=== PATIENT | male | born 1965 | race Caucasian/White ===

== ENCOUNTER 2017-09-16 13:37 | Emergency (ER) | payer MEDICAID ==
[~2017-09-16] VITALS: Ht 177.8 cm; Wt 68.9 kg
[2017-09-16] MEDS ORDERED: IBUP-1984 PO (14:15)
[2017-09-16] MEDS ORDERED: GUAI473S11 PO (14:15)
[2017-09-16] MEDS ORDERED: ALBU6.7H INH (14:15)
[2017-09-16] MEDS ORDERED: CARB15DR91 EACH EAR (14:17)
[2017-09-16 14:33] VITALS: BP 116/76
== END 2017-09-16 14:40 | disposition home or self-care (01) ==
LOC: ER 13:38
DX: J11.1 Influenza due to unidentified influenza virus with other respiratory manifestations (principal); H61.21 Impacted cerumen, right ear; Z79.899 Other long term (current) drug therapy
CPT/HCPCS: 99283

== ENCOUNTER 2021-01-26 20:57 | Inpatient (IN) | payer MEDICAID ==
[~2021-01-26] VITALS: Ht 177.8 cm; Wt 72.7 kg
[~2021-01-26 20:57] MED LIST: ALBU6.7H9 INH; CARB15DR91 EACH EAR
[2021-01-26 21:45] LABS: BASOPHILS % (AUTO) 0.2 % (0-1); EOSINOPHILS % (AUTO) 0.2 % (0-6); HEMATOCRIT 49.5 % (42.0-52.0); HEMOGLOBIN 16.5 g/dl (14.0-17.9); LYMPHOCYTES # (AUTO) 0.7 X10'3 (1.1-4.8); LYMPHOCYTES % (AUTO) 4.3 % (21-51); MEAN CORPUSCULAR HGB CONC 33.3 g/dL (33.0-36.5); MEAN CORPUSCULAR VOLUME 90.1 FL (78-98); MEAN PLATELET VOLUME 6.8 FL (7.4-10.4); MONOCYTES # (AUTO) 0.7 X10'3 (0-0.9); MONOCYTES % (AUTO) 4.1 % (2-12); NEUTROPHILS % (AUTO) 91.2 % (42-75); PLATELET COUNT 451 X10'3 (140-440); RED BLOOD COUNT 5.49 X10'6 (4.70-6.10); WHITE BLOOD COUNT 16.5 X10'3 (4.5-11.0)
[2021-01-26 21:56] LABS: ALANINE AMINOTRANSFERASE 51 U/L (12-78); ALBUMIN 4.4 G/DL (3.4-5.0); ALBUMIN/GLOBULIN RATIO 1.2 (1.1-1.5); ALKALINE PHOSPHATASE 110 IU/L (46-116); ANION GAP 10 (8-16); ASPARTATE AMINO TRANSFERASE 25 U/L (10-37); BILIRUBIN,TOTAL 0.9 MG/DL (0.1-1.0); BLOOD UREA NITROGEN 15 MG/DL (7-18); BUN/CREATININE RATIO 10.4 (5.4-32.0); CALCIUM 9.8 MG/DL (8.5-10.1); CHLORIDE 103 MMOL/L (99-107); CREATININE 1.44 MG/DL (0.60-1.10); GLUCOSE 121 MG/DL (70-104); LIPASE 65 U/L (73-393); SODIUM 141 MMOL/L (135-145); TOTAL CARBON DIOXIDE 27.6 MMOL/L (24-32); TOTAL PROTEIN 8.2 G/DL (6.4-8.2); eGFR 51 ML/MIN
[2021-01-26] MEDS ORDERED: tamsulosin 0.4mg capsule PO SCH (22:35)
[2021-01-26] MEDS ORDERED: ketorolac trometh. 30mg/ml inj. IV ONE (22:35)
[2021-01-26] MEDS ORDERED: normal saline 1000ML IV soln IVB ONE (22:35)
[2021-01-26 22:50] LABS: ETHANOL < 0.010 GM/DL (0.0-0.010)
[2021-01-26 23:05] LABS: CLARITY,URINE SLIGHTLY CLOUDY (Clear); COLOR,URINE YELLOW (Yellow); GLUCOSE, URINE NEGATIVE (Neg); KETONES,URINE >=80 mg/dl (Neg); LEUKOCYTE ESTERASE ,URINE NEGATIVE (Neg); NITRITES, URINE NEGATIVE (Neg); OCCULT BLOOD,URINE MODERATE (Neg); PROTEIN,URINE 100 mg/dl (Neg)
[2021-01-26 23:07] LABS: UA COLLECTION TYPE CLN CATCH MIDSTREAM
[2021-01-26 23:09] LABS: URINE AMPHETAMINE SCREEN POSITIVE (Neg); URINE BARBITUATE SCREEN NEGATIVE (Neg); URINE BENZODIAZEPINES SCREEN NEGATIVE (Neg); URINE CANNABINOID SCREEN POSITIVE (Neg); URINE COCAINE SCREEN NEGATIVE (Neg); URINE METHADONE SCREEN NEGATIVE (Neg); URINE OPIATE SCREEN NEGATIVE (Neg); URINE PHENCYCLIDINE SCREEN NEGATIVE (Neg)
[2021-01-26 23:13] LABS: WBC,URINE 0-4 /HPF (0-4)
[2021-01-26 23:14] LABS: BACTERIA,URINE NONE SEEN /HPF (Neg); MUCUS STRANDS MODERATE /LPF (Neg); SPERM MODERATE /HPF (NEGATIVE); SQUAMOUS EPITHELIAL CELL,UR FEW /LPF (FEW)
[2021-01-27] MEDS ORDERED: CefTRIAXone/D5W-Rocephin 1gm 50 ML IV ONE (01:25)
--- NOTE | 2021-01-27 01:43 | NUR ---
report given by Paula Coppola, assumed care.
[2021-01-27] MEDS ORDERED: OMEP20TA5 PO (01:48)
[2021-01-27] MEDS ORDERED: HYDROmorphone inj. 0.5 MG/0.5 ML DISP.SYRIN IV PRN (02:00)
[2021-01-27] MEDS ORDERED: magnesium hydroxide 30ml (MOM) UD suspension PO PRN (02:00)
[2021-01-27] MEDS ORDERED: ondansetron/PF 4mg/2ml inj IV PRN (02:00)
[2021-01-27] MEDS ORDERED: acetaminophen 325mg tablet PO PRN ×2 (02:00)
[2021-01-27] MEDS ORDERED: bisacodyl 10mg suppository rectal RC PRN (02:00)
[2021-01-27] MEDS ORDERED: acetaminophen 650mg rectal suppository RC PRN (02:00)
[2021-01-27] MEDS ORDERED: HYDROcodone/acetaminophen 10/325mg tab PO PRN (02:00)
[2021-01-27] MEDS ORDERED: ondansetron 4mg rapidly disintigrating tab PO PRN (02:00)
[2021-01-27] MEDS ORDERED: HYDROcodone/acetaminophen 5mg/325mg tablet PO PRN (02:00)
[2021-01-27] MEDS ORDERED: diphenhydrAMINE 50 mg/ml inj IV PRN (02:00)
[2021-01-27] MEDS ORDERED: morphine 2 MG/ML inj. syringe IV PRN ×2 (02:00)
[2021-01-27] MEDS ORDERED: mag hydrox/Alum hydrox/simeth 30ml oral suspension PO PRN (02:00)
[2021-01-27] MEDS ORDERED: diphenhydrAMINE 25mg capsule PO PRN (02:00)
[2021-01-27 02:28] LABS: PARTIAL THROMBOPLASTIN TIME 30 SECONDS (22-32)
[2021-01-27 02:28] LABS: CREATINE KINASE 161 U/L (39-308); PHOSPHORUS 2.7 MG/DL (2.3-4.5)
[2021-01-27] MEDS: dextrose 5%-1/2 normal saline 1,000 ML IV SCH ×2 (02:34→12:00)
--- NOTE | 2021-01-27 03:14 | NUR ---
report given to TASHIA Moreno. care transferred.
[2021-01-27] MEDS ORDERED: nicotine 21mg patch - 24 hr TD ONE (05:15)
--- NOTE | 2021-01-27 07:21 | NUR ---
RN called [facility] to give report. Floor RN unavailable and will call ED back.
[2021-01-27] MEDS ORDERED: pantoprazole 40mg Tablet.DR PO SCH (07:30)
[2021-01-27] MEDS ORDERED: lisinopril 5mg tablet PO SCH (08:00)
[2021-01-27] MEDS ORDERED: heparin, porcine 5000 units/ml vial SQ SCH (08:00)
[2021-01-27] MEDS ORDERED: tamsulosin 0.4mg capsule PO SCH (08:00)
[2021-01-27] MEDS ORDERED: docusate sod 100mg capsule PO SCH (08:00)
[2021-01-27 08:45] VITALS: BP 150/87
--- NOTE | 2021-01-27 08:45 | NUR ---
Patient in room [facility] 340. I have received report from [facility] and had the opportunity to ask questions and assume patient care.
[2021-01-27] MEDS ORDERED: potassium Cl 40MEQ/1/2NS 520ml 520 ML IV PRN (10:25)
[2021-01-27] MEDS ORDERED: magnesium 4gm in 100ml NS 100 ML IV PRN (10:25)
[2021-01-27] MEDS ORDERED: potassium Cl 20 mEq SR tablet PO PRN ×2 (10:25)
[2021-01-27] MEDS ORDERED: magnesium Cl slow-release 64mg tablet PO PRN (10:25)
--- NOTE | 2021-01-27 10:35 | NUR ---
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 She appears to be adequately cared for. She was independently ambulating in the hallways, with a slight shuffle. This mom was escorted back to pt's room. TASHIA Colon, and BEE Polo, and Billie Ortiz Entry Level Administrative Assistant are aware. Rtn call from Chief Revenue Officer pending.
[2021-01-27 11:00] VITALS: BP 147/86
[2021-01-27] MEDS ORDERED: CefTRIAXone/D5W-Rocephin 1gm 50 ML IV SCH (14:00)
[2021-01-27] MEDS ORDERED: LACT1CAP26 PO (18:09)
[2021-01-27] MEDS ORDERED: AMLO5TAB16 PO (18:09)
[2021-01-27] MEDS ORDERED: CEFD300C3 PO (18:13)
--- NOTE | 2021-01-27 18:27 | NUR ---
Problems reprioritized. Patient report given, questions answered & plan of care reviewed with Lynette Ojeda RN.
--- NOTE | 2021-01-27 18:35 | NUR ---
Patient in room [facility] 340. I have received report from SAPPHIRE [facility] and had the opportunity to ask questions and assume patient care. PATIENT FOR DISCHARGE TONIGHT WITH ORDER FROM DR. VICENTE.
--- NOTE | 2021-01-27 19:00 | NUR ---
DISCHARGE INSTRUCTIONS GIVEN TO PATIENT AND VERBALIZED UNDERSTANDING, DISCHARGE PAPER SIGNED BY PATIENT. PIV DISCONTINUED WITH CANNULA INTACT, PRESSURE DRESSING APPLIED NO BLEEDING NOTED.
--- NOTE | 2021-01-27 19:15 | NUR ---
PATIENT LEFT FOR DISCHARGE HOME IN A WHEELCHAIR WITH STAFF TO THE FRONT DOOR.
[2021-01-27] MEDS ORDERED: lactobacillus rhamnosus 10,000 MMU CELLS/CAPSULE PO SCH (20:00)
[2021-01-27] MEDS ORDERED: K and/or MAG REPLACEMENT MC SCH (20:00)
[2021-01-27] MEDS ORDERED: temazepam 15mg capsule PO PRN (21:00)
== END 2021-01-27 19:10 | disposition home or self-care (01) | DRG 463 ==
LOC: ER 20:59 → ED HOLD 01-27 01:57 → SUR 3N 01-27 08:31
PROVIDERS: ADMIT Family Medicine; ATTEND Family Medicine
DX: N13.6 Pyonephrosis (principal); N17.9 Acute kidney failure, unspecified; E86.0 Dehydration; F12.10 Cannabis abuse, uncomplicated; F15.129 Other stimulant abuse with intoxication, unspecified; F17.200 Nicotine dependence, unspecified, uncomplicated; I10 Essential (primary) hypertension; K21.9 Gastro-esophageal reflux disease without esophagitis
CPT/HCPCS: 36415; 74176; 80053; 80305; 80320; 81001; 82550; 83690; 83735; 83880; 84100; 84443; 85025; 85610; 85730; 87081; 99285; G0378; J0696; J1644; J1885; J7030

== ENCOUNTER 2023-04-04 09:11 | Inpatient (IN) | payer MEDICAID ==
[~2023-04-04] VITALS: Ht 175.3 cm; Wt 70.5 kg
[~2023-04-04 09:11] MED LIST changes: -ALBU6.7H9 INH; +AMLO5TAB16 PO; -CARB15DR91 EACH EAR; +LACT1CAP26 PO; +OMEP20TA43 PO
[2023-04-04] MEDS ORDERED: piperacillin/tazo 3.375gm/50ml 50 ML IV ONE (09:55)
[2023-04-04] MEDS ORDERED: normal saline 1000ml 1,000 ML IV ONE (09:55)
[2023-04-04] MEDS ORDERED: morphine 4 MG/ML inj SYRINge IV ONE (09:55)
[2023-04-04 10:39] LABS: BASOPHILS # (AUTO) 0.1 X10'3 (0-0.2); BASOPHILS % (AUTO) 0.5 % (0-1); EOSINOPHILS # (AUTO) 0.5 X10'3 (0-0.9); EOSINOPHILS % (AUTO) 2.3 % (0-6); HEMATOCRIT 41.4 % (42.0-52.0); LYMPHOCYTES # (AUTO) 1.2 X10'3 (1.1-4.8); LYMPHOCYTES % (AUTO) 6.1 % (21-51); MEAN CORPUSCULAR HEMOGLOBIN 30.5 PG (27.0-31.0); MEAN CORPUSCULAR VOLUME 89.8 FL (78-98); MEAN PLATELET VOLUME 7.4 FL (7.4-10.4); MONOCYTES # (AUTO) 1.6 X10'3 (0-0.9); MONOCYTES % (AUTO) 7.9 % (2-12); NEUTROPHILS # (AUTO) 16.4 X10'3 (1.8-7.7); NEUTROPHILS % (AUTO) 83.2 % (42-75); PLATELET COUNT 431 X10'3 (140-440); RED BLOOD COUNT 4.61 X10'6 (4.70-6.10); RED CELL DISTRIBUTION WIDTH 14.4 % (11.5-14.5); WHITE BLOOD COUNT 19.8 X10'3 (4.5-11.0)
[2023-04-04 10:51] LABS: ALANINE AMINOTRANSFERASE 39 U/L (12-78); ALBUMIN 3.3 G/DL (3.4-5.0); ALBUMIN/GLOBULIN RATIO 0.7 (1.1-1.5); ALKALINE PHOSPHATASE 116 IU/L (46-116); ANION GAP 11 (8-16); BILIRUBIN,TOTAL 1.2 MG/DL (0.1-1.0); BLOOD UREA NITROGEN 19 MG/DL (7-18); BUN/CREATININE RATIO 17.4 (10.0-20.0); CALCIUM 9.5 MG/DL (8.5-10.1); CHLORIDE 101 MMOL/L (99-107); CREATININE 1.09 MG/DL (0.60-1.10); GLUCOSE 117 MG/DL (70-104); MAGNESIUM 2.5 MG/DL (1.5-2.4); SODIUM 138 MMOL/L (135-145); eGFR 70 ML/MIN
[2023-04-04 10:57] LABS: ASPARTATE AMINO TRANSFERASE 29 U/L (10-37); POTASSIUM 3.7 MMOL/L (3.5-5.1)
[2023-04-04 11:00] LABS: CLARITY,URINE SLIGHTLY CLOUDY (Clear); COLOR,URINE AMBER (Yellow); GLUCOSE, URINE 100 mg/dl (Neg); KETONES,URINE TRACE mg/dl (Neg); LEUKOCYTE ESTERASE ,URINE NEGATIVE (Neg); OCCULT BLOOD,URINE NEGATIVE (Neg); PH,URINE 5.5 (4.8-8.0); PROTEIN,URINE 30 mg/dl (Neg)
[2023-04-04 11:09] LABS: UA COLLECTION TYPE CLN CATCH MIDSTREAM; URINE AMPHETAMINE SCREEN POSITIVE (Neg); URINE BARBITUATE SCREEN NEGATIVE (Neg); URINE BENZODIAZEPINES SCREEN NEGATIVE (Neg); URINE CANNABINOID SCREEN POSITIVE (Neg); URINE COCAINE SCREEN NEGATIVE (Neg); URINE METHADONE SCREEN NEGATIVE (Neg); URINE OPIATE SCREEN NEGATIVE (Neg); URINE PHENCYCLIDINE SCREEN NEGATIVE (Neg)
[2023-04-04 11:10] LABS: NITRITES, URINE NEGATIVE (Neg)
[2023-04-04 11:27] LABS: BACTERIA,URINE 1+ /HPF (Neg); MUCUS STRANDS MANY /LPF (Neg); RBC,URINE NONE SEEN /HPF (0-2); SQUAMOUS EPITHELIAL CELL,UR FEW /LPF (FEW)
[2023-04-04] MEDS ORDERED: acetaminophen 325mg tablet PO PRN ×2 (11:35)
[2023-04-04] MEDS ORDERED: magnesium hydroxide 30ml (MOM) UD suspension PO PRN (11:35)
[2023-04-04] MEDS ORDERED: morphine 2 MG/ML inj. syringe IV PRN (11:35)
[2023-04-04] MEDS ORDERED: potassium Cl 40MEQ/1/2NS 520ml 520 ML IV PRN (11:35)
[2023-04-04] MEDS ORDERED: ondansetron/PF 4mg/2ml inj IV PRN (11:35)
[2023-04-04] MEDS ORDERED: potassium Cl 20 mEq SR tablet PO PRN ×2 (11:35)
[2023-04-04] MEDS ORDERED: magnesium Cl slow-release 64mg tablet PO PRN (11:35)
[2023-04-04] MEDS ORDERED: magnesium 4gm in 100ml NS 100 ML IV PRN (11:35)
[2023-04-04] MEDS ORDERED: magnesium 2GM in 50ml NS 50 ML IV PRN (11:35)
[2023-04-04] MEDS: normal saline 1000ml 1,000 ML IV SCH (12:01)
[2023-04-04] MEDS: doxycycline inj 100 MG in normal saline 100ml IV soln 100 ML IV SCH ×2 (12:02→19:20)
[2023-04-04] MEDS ORDERED: OMEP40CA21 PO (12:52)
--- NOTE | 2023-04-04 15:19 | NUR ---
Wound care pictures taken. Wound redressed.
[2023-04-04 16:02] VITALS: RESP 12
[2023-04-04 16:45] VITALS: BP 111/67; PULSE 57; RESP 18; TEMP 97.8; O2SAT 99
--- NOTE | 2023-04-04 18:26 | NUR ---
Problems reprioritized. Patient report given, questions answered & plan of care reviewed with TASHIA Lacy.
--- NOTE | 2023-04-04 18:26 | NUR ---
Patient in room [facility] 4007. I have received report from Perico [facility] and had the opportunity to ask questions and assume patient care.
--- NOTE | 2023-04-04 18:30 | NUR ---
I have reviewed and agree with interventions, assessments, and documentation by Dallas Sherwood LVN.
[2023-04-04 19:20] VITALS: BP 103/63; PULSE 74; RESP 16; TEMP 97.8; O2SAT 96
[2023-04-04] MEDS: heparin, porcine 5000 units/ml vial SQ SCH (19:21)
[2023-04-04] MEDS: HYDROcodone/acetaminophen 5mg/325mg tablet PO PRN (19:21)
[2023-04-04 21:52] VITALS: BP 102/62; PULSE 72; RESP 14; TEMP 98; O2SAT 99
[2023-04-05] VITALS (7 sets, daily range): BP systolic 100–137; BP diastolic 62–82; PULSE 60–67; RESP 14–16; TEMP 97.7–98.3; O2SAT 97–99
[2023-04-05] MEDS: normal saline 1000ml 1,000 ML IV SCH ×2 (03:47→19:08)
[2023-04-05] MEDS: HYDROcodone/acetaminophen 5mg/325mg tablet PO PRN ×2 (03:50→23:33)
--- NOTE | 2023-04-05 06:15 | NUR ---
Patient in room [facility] 4007. I have received report from Bambi [facility] and had the opportunity to ask questions and assume patient care.
--- NOTE | 2023-04-05 06:20 | NUR ---
Problems reprioritized. Patient report given, questions answered & plan of care reviewed with Elisha [facility].
[2023-04-05 07:46] LABS: BASOPHILS # (AUTO) 0.1 X10'3 (0-0.2); BASOPHILS % (AUTO) 1.2 % (0-1); EOSINOPHILS # (AUTO) 0.5 X10'3 (0-0.9); EOSINOPHILS % (AUTO) 4.6 % (0-6); HEMATOCRIT 35.7 % (42.0-52.0); HEMOGLOBIN 11.9 g/dl (14.0-17.9); LYMPHOCYTES # (AUTO) 1.6 X10'3 (1.1-4.8); LYMPHOCYTES % (AUTO) 13.6 % (21-51); MEAN CORPUSCULAR HEMOGLOBIN 29.9 PG (27.0-31.0); MEAN CORPUSCULAR HGB CONC 33.3 g/dL (33.0-36.5); MEAN CORPUSCULAR VOLUME 89.7 FL (78-98); MEAN PLATELET VOLUME 7.6 FL (7.4-10.4); MONOCYTES # (AUTO) 0.8 X10'3 (0-0.9); MONOCYTES % (AUTO) 6.9 % (2-12); NEUTROPHILS # (AUTO) 8.5 X10'3 (1.8-7.7); NEUTROPHILS % (AUTO) 73.7 % (42-75); PLATELET COUNT 370 X10'3 (140-440); RED BLOOD COUNT 3.98 X10'6 (4.70-6.10); RED CELL DISTRIBUTION WIDTH 14.2 % (11.5-14.5); WHITE BLOOD COUNT 11.5 X10'3 (4.5-11.0)
[2023-04-05] MEDS: doxycycline inj 100 MG in normal saline 100ml IV soln 100 ML IV SCH ×2 (07:52→20:47)
[2023-04-05 08:17] LABS: ALANINE AMINOTRANSFERASE 31 U/L (12-78); ALBUMIN 2.2 G/DL (3.4-5.0); ALBUMIN/GLOBULIN RATIO 0.6 (1.1-1.5); ALKALINE PHOSPHATASE 94 IU/L (46-116); ANION GAP 8 (8-16); ASPARTATE AMINO TRANSFERASE 26 U/L (10-37); BILIRUBIN,TOTAL 0.3 MG/DL (0.1-1.0); BLOOD UREA NITROGEN 18 MG/DL (7-18); BUN/CREATININE RATIO 20.9 (10.0-20.0); CALCIUM 8.3 MG/DL (8.5-10.1); CHLORIDE 106 MMOL/L (99-107); CREATININE 0.86 MG/DL (0.60-1.10); GLUCOSE 98 MG/DL (70-104); SODIUM 141 MMOL/L (135-145); TOTAL CARBON DIOXIDE 26.9 MMOL/L (24-32); TOTAL PROTEIN 5.8 G/DL (6.4-8.2); eGFR > 90 ML/MIN
[2023-04-05] MEDS: pantoprazole 40mg Tablet.DR PO SCH (08:33)
[2023-04-05 08:36] LABS: POTASSIUM 3.6 MMOL/L (3.5-5.1)
[2023-04-05] MEDS: heparin, porcine 5000 units/ml vial SQ SCH ×2 (08:36→20:49)
--- NOTE | 2023-04-05 15:28 | NUR ---
ADOBE FLEX DEVELOPER documentation: I have reviewed and agree with all interventions, assessments performed and documented by Bella Almanzar LVN .
--- NOTE | 2023-04-05 15:43 | NUR ---
PRESSURE ULCER EDUCATION: DEFINITION: A pressure ulcer is an area of skin that breaks down when you stay in one position too long. The constant pressure against the skin reduces the blood flow to that area and the affected tissue dies. CAUSES: "Being bedridden or in a wheelchair "Fragile skin "Having a chronic condition, such as diabetes or vascular disease "Inability to move certain parts of your body without assistance "Older age "Incontinence of urine or stool SYMPTOMS: "A reddened area that DOES NOT turn white when pressed on - this can be the beginning of a pressure ulcer "A blister, deep sore or a crater - these can be advanced pressure ulcers FIRST AID: "Relieve the pressure on this area "Keep the area clean and dry "Call your primary doctor if you see any of the above symptoms "DO NOT massage the area "DO NOT use a donut shaped or ring shaped pillow- these actually interfere with the blood flow and cause complications PREVENTION: "Check for pressure ulcers everyday "Change position at least every two hours to relieve pressure "Use items that help relieve pressure- pillows, sheepskin, foam padding, and powders. "Keep skin clean and dry "Eat healthy well balanced meals "Exercise daily IF YOU SEE ANY OF THESE SYMPTOMS WHILE IN THE HOSPITAL - TELL YOUR NURSE IMMEDIATELY. IF YOU SEE ANY OF THESE SYMPTOMS WHILE AT HOME OR HAVE ANY QUESTIONS OR CONCERNS ABOUT PRESSURE ULCERS - CALL YOUR PRIMARY DOCTOR IMMEDIATELY. Addendum: 04/05/23 at 1544 by Consuelo Beal RN Amended: Links added.
--- NOTE | 2023-04-05 16:30 | NUR ---
Dr. Stark visited patient at bedside and looked at left leg wound. Per Dr. Stark patient doesn't need surgery but will be a long road to get wound taken care of.
--- NOTE | 2023-04-05 18:20 | NUR ---
Patient in room [facility] 4007. I have received report from Bella HERNANDEZ and had the opportunity to ask questions and assume patient care.
[2023-04-05] MEDS: temazepam 15mg capsule PO PRN (23:53)
[2023-04-06] MEDS: normal saline 1000ml 1,000 ML IV SCH ×2 (03:35→15:53)
[2023-04-06 06:00] VITALS: BP 123/66; PULSE 80; RESP 15; TEMP 98.7; O2SAT 96
--- NOTE | 2023-04-06 06:30 | NUR ---
Patient in room [facility] 4007. I have received report from Tosin [facility] and had the opportunity to ask questions and assume patient care.
--- NOTE | 2023-04-06 06:48 | NUR ---
Problems reprioritized. Patient report given, questions answered & plan of care reviewed with Bella HERNANDEZ.
[2023-04-06 07:07] LABS: BASOPHILS # (AUTO) 0.1 X10'3 (0-0.2); BASOPHILS % (AUTO) 0.9 % (0-1); EOSINOPHILS # (AUTO) 0.5 X10'3 (0-0.9); EOSINOPHILS % (AUTO) 5.4 % (0-6); HEMATOCRIT 35.2 % (42.0-52.0); HEMOGLOBIN 11.8 g/dl (14.0-17.9); LYMPHOCYTES # (AUTO) 2.3 X10'3 (1.1-4.8); LYMPHOCYTES % (AUTO) 23.6 % (21-51); MEAN CORPUSCULAR HEMOGLOBIN 30.2 PG (27.0-31.0); MEAN CORPUSCULAR HGB CONC 33.4 g/dL (33.0-36.5); MEAN CORPUSCULAR VOLUME 90.3 FL (78-98); MEAN PLATELET VOLUME 7.6 FL (7.4-10.4); MONOCYTES # (AUTO) 0.8 X10'3 (0-0.9); MONOCYTES % (AUTO) 7.9 % (2-12); NEUTROPHILS % (AUTO) 62.2 % (42-75); PLATELET COUNT 434 X10'3 (140-440); RED CELL DISTRIBUTION WIDTH 14.2 % (11.5-14.5); WHITE BLOOD COUNT 9.7 X10'3 (4.5-11.0)
[2023-04-06 07:28] LABS: ALANINE AMINOTRANSFERASE 31 U/L (12-78); ALBUMIN 2.2 G/DL (3.4-5.0); ALBUMIN/GLOBULIN RATIO 0.7 (1.1-1.5); ALKALINE PHOSPHATASE 101 IU/L (46-116); ANION GAP 5 (8-16); ASPARTATE AMINO TRANSFERASE 17 U/L (10-37); BILIRUBIN,TOTAL 0.2 MG/DL (0.1-1.0); BLOOD UREA NITROGEN 17 MG/DL (7-18); CALCIUM 8.3 MG/DL (8.5-10.1); CHLORIDE 108 MMOL/L (99-107); CREATININE 0.85 MG/DL (0.60-1.10); GLUCOSE 95 MG/DL (70-104); POTASSIUM 3.5 MMOL/L (3.5-5.1); SODIUM 141 MMOL/L (135-145); TOTAL CARBON DIOXIDE 27.9 MMOL/L (24-32); TOTAL PROTEIN 5.5 G/DL (6.4-8.2); eGFR > 90 ML/MIN
[2023-04-06] MEDS: HYDROcodone/acetaminophen 5mg/325mg tablet PO PRN ×2 (07:59→15:51)
[2023-04-06] MEDS: pantoprazole 40mg Tablet.DR PO SCH (07:59)
[2023-04-06 08:00] VITALS: RESP 15; O2SAT 91
[2023-04-06] MEDS ORDERED: non-formulary drug (Omeprazole (Prilosec) 1 CAP) PO SCH (08:00)
[2023-04-06] MEDS: heparin, porcine 5000 units/ml vial SQ SCH ×2 (08:00→19:30)
[2023-04-06] MEDS: doxycycline inj 100 MG in normal saline 100ml IV soln 100 ML IV SCH (08:03)
[2023-04-06 10:00] VITALS: BP 129/75; PULSE 62; RESP 15; TEMP 97.9; O2SAT 96
[2023-04-06] MEDS: linezolid 600mg tablet PO SCH ×2 (12:00→19:30)
[2023-04-06] MEDS: ceFAZolin/D5W- 1GM premix 50 ML IV SCH ×3 (13:13→23:47)
--- NOTE | 2023-04-06 14:35 | NUR ---
INSURANCE OPERATIONS REP documentation: I have reviewed and agree with all interventions, assessments performed and documented by Bella Almanzar LVN.
--- NOTE | 2023-04-06 16:57 | NUR ---
WOC note: Spoke to primary nurse who reports increased drainage. Recommend BID dressing changes with PRN changes for saturation.
[2023-04-06 18:00] VITALS: BP 122/63; PULSE 55; RESP 20; TEMP 99.3; O2SAT 99
--- NOTE | 2023-04-06 18:24 | NUR ---
Problems reprioritized. Patient report given, questions answered & plan of care reviewed with Carrington HERNANDEZ.
--- NOTE | 2023-04-06 18:30 | NUR ---
Problems reprioritized. Patient report given, questions answered & plan of care reviewed with Tawana HERNANDEZ.
[2023-04-06 22:00] VITALS: BP 127/65; PULSE 54; RESP 16; TEMP 97.8; O2SAT 97
--- NOTE | 2023-04-07 02:35 | NUR ---
Agree with Tawana HERNANDEZ assessment except where I documented my findings.
[2023-04-07] MEDS: normal saline 1000ml 1,000 ML IV SCH ×2 (05:14→19:35)
[2023-04-07 06:00] VITALS: BP 133/71; PULSE 64; RESP 16; TEMP 98.6; O2SAT 98
--- NOTE | 2023-04-07 06:30 | NUR ---
Patient in room [facility] 4007. I have received report from Carrington HERNANDEZ and had the opportunity to ask questions and assume patient care.
--- NOTE | 2023-04-07 06:31 | NUR ---
Problems reprioritized. Patient report given, questions answered & plan of care reviewed with Bella HERNANDEZ.
[2023-04-07 06:41] LABS: BASOPHILS # (AUTO) 0.1 X10'3 (0-0.2); BASOPHILS % (AUTO) 0.9 % (0-1); EOSINOPHILS # (AUTO) 0.4 X10'3 (0-0.9); EOSINOPHILS % (AUTO) 3.9 % (0-6); HEMATOCRIT 41.5 % (42.0-52.0); HEMOGLOBIN 13.7 g/dl (14.0-17.9); LYMPHOCYTES # (AUTO) 2.1 X10'3 (1.1-4.8); LYMPHOCYTES % (AUTO) 20.6 % (21-51); MEAN CORPUSCULAR HEMOGLOBIN 29.8 PG (27.0-31.0); MEAN CORPUSCULAR VOLUME 90.3 FL (78-98); MEAN PLATELET VOLUME 8.4 FL (7.4-10.4); MONOCYTES # (AUTO) 0.4 X10'3 (0-0.9); MONOCYTES % (AUTO) 3.6 % (2-12); NEUTROPHILS # (AUTO) 7.2 X10'3 (1.8-7.7); PLATELET COUNT 480 X10'3 (140-440); RED BLOOD COUNT 4.59 X10'6 (4.70-6.10); RED CELL DISTRIBUTION WIDTH 14.1 % (11.5-14.5); WHITE BLOOD COUNT 10.2 X10'3 (4.5-11.0)
[2023-04-07 07:01] LABS: ALANINE AMINOTRANSFERASE 37 U/L (12-78); ALBUMIN 2.9 G/DL (3.4-5.0); ALBUMIN/GLOBULIN RATIO 0.7 (1.1-1.5); ALKALINE PHOSPHATASE 108 IU/L (46-116); ANION GAP 11 (8-16); ASPARTATE AMINO TRANSFERASE 18 U/L (10-37); BILIRUBIN,TOTAL 0.3 MG/DL (0.1-1.0); BLOOD UREA NITROGEN 14 MG/DL (7-18); BUN/CREATININE RATIO 16.3 (10.0-20.0); CHLORIDE 104 MMOL/L (99-107); CREATININE 0.86 MG/DL (0.60-1.10); GLUCOSE 82 MG/DL (70-104); POTASSIUM 3.5 MMOL/L (3.5-5.1); SODIUM 142 MMOL/L (135-145); TOTAL CARBON DIOXIDE 26.9 MMOL/L (24-32); TOTAL PROTEIN 7.1 G/DL (6.4-8.2); eGFR > 90 ML/MIN
[2023-04-07] MEDS: heparin, porcine 5000 units/ml vial SQ SCH ×2 (07:36→19:53)
[2023-04-07] MEDS: pantoprazole 40mg Tablet.DR PO SCH (07:36)
[2023-04-07] MEDS: linezolid 600mg tablet PO SCH ×2 (07:36→19:53)
[2023-04-07] MEDS: ceFAZolin/D5W- 1GM premix 50 ML IV SCH ×3 (07:44→23:37)
[2023-04-07 08:00] VITALS: RESP 16; O2SAT 98
[2023-04-07 10:00] VITALS: BP 127/64; PULSE 58; RESP 16; TEMP 98; O2SAT 98
--- NOTE | 2023-04-07 13:55 | NUR ---
Zyvox consult: Pt admit DX L leg cellulitis positive for meth/fentanyl and probable GERD started on zyvox per EMR. Pt w/ anterior LLE traumatic injury per WOC possibly to have I&D pending surgery consult at this time per MD note. Pt PO 100% regular diet meeting estimated needs and would meet wound healing needs if to have I&D. Pt seen by RD at bedside for written/verbal low-tyramine diet ed w/ RD contact information provided. RD encouraged pt to contact dietitian's office if further nutrition questions/concerns. Addendum: 04/07/23 at [address] Amended: Links added.
--- NOTE | 2023-04-07 15:02 | NUR ---
SPECIAL EDUCATION PARAPROFESSIONAL documentation: I have reviewed and agree with all interventions, assessments performed and documented by Bella Almanzar LVN.
--- NOTE | 2023-04-07 15:43 | NUR ---
PAGER ID: [phone] MESSAGE: [id number]-Patient wants to know what the game plan is? Please advise? GIULIANA gimenez [phone]
--- NOTE | 2023-04-07 16:08 | NUR ---
Patient stated that he is needing to know the plan and his mother is at [facility] and she isn't doing good and was told she may pass. I called Dr. Ardon and advised her of this. Per Dr. Ardon patient will need to AMA because she isn't discharging him. Patient is needing wound care and no HH where patient lives. I advised patient of this and he stated that he will follow up with his pcp next week for wound care.
--- NOTE | 2023-04-07 16:40 | NUR ---
Patient asked about his antibiotics and I advised him if leaving AMA he will not get anything. after careful thought, patient decided to stay. I paged Dr. Ardon as an FYI
--- NOTE | 2023-04-07 16:43 | NUR ---
PAGER ID: [phone] MESSAGE: [id number] Ashby: Patient is not leaving AMA and wants to stay to get the treatment he needs. TY
[2023-04-07 18:00] VITALS: BP 135/81; PULSE 56; RESP 16; TEMP 98.8; O2SAT 98
--- NOTE | 2023-04-07 18:47 | NUR ---
Problems reprioritized. Patient report given, questions answered & plan of care reviewed with Carrington HERNANDEZ.
[2023-04-07 22:00] VITALS: BP 131/77; PULSE 63; RESP 16; TEMP 97.6; O2SAT 93
[2023-04-08] MEDS: normal saline 1000ml 1,000 ML IV SCH ×2 (00:53→22:32)
--- NOTE | 2023-04-08 01:58 | NUR ---
Agree with Tawana HERNANDEZ assessment except where I documented my findings.
[2023-04-08 06:00] VITALS: BP 150/78; PULSE 64; RESP 16; TEMP 97; O2SAT 98
[2023-04-08] MEDS: ceFAZolin/D5W- 1GM premix 50 ML IV SCH ×3 (07:05→23:45)
[2023-04-08 07:31] LABS: BASOPHILS # (AUTO) 0.1 X10'3 (0-0.2); BASOPHILS % (AUTO) 1.1 % (0-1); EOSINOPHILS # (AUTO) 0.3 X10'3 (0-0.9); EOSINOPHILS % (AUTO) 3.2 % (0-6); HEMATOCRIT 40.7 % (42.0-52.0); HEMOGLOBIN 13.7 g/dl (14.0-17.9); LYMPHOCYTES # (AUTO) 1.8 X10'3 (1.1-4.8); LYMPHOCYTES % (AUTO) 18.4 % (21-51); MEAN CORPUSCULAR HEMOGLOBIN 30.1 PG (27.0-31.0); MEAN CORPUSCULAR HGB CONC 33.7 g/dL (33.0-36.5); MEAN CORPUSCULAR VOLUME 89.3 FL (78-98); MEAN PLATELET VOLUME 7.4 FL (7.4-10.4); MONOCYTES # (AUTO) 0.6 X10'3 (0-0.9); MONOCYTES % (AUTO) 6.4 % (2-12); NEUTROPHILS % (AUTO) 70.9 % (42-75); PLATELET COUNT 513 X10'3 (140-440); RED BLOOD COUNT 4.55 X10'6 (4.70-6.10); RED CELL DISTRIBUTION WIDTH 14.4 % (11.5-14.5); WHITE BLOOD COUNT 9.9 X10'3 (4.5-11.0)
[2023-04-08 07:37] LABS: ALANINE AMINOTRANSFERASE 40 U/L (12-78); ALBUMIN 2.7 G/DL (3.4-5.0); ALBUMIN/GLOBULIN RATIO 0.7 (1.1-1.5); ALKALINE PHOSPHATASE 103 IU/L (46-116); ANION GAP 10 (8-16); ASPARTATE AMINO TRANSFERASE 27 U/L (10-37); BILIRUBIN,TOTAL 0.3 MG/DL (0.1-1.0); BLOOD UREA NITROGEN 12 MG/DL (7-18); BUN/CREATININE RATIO 13.8 (10.0-20.0); CALCIUM 8.8 MG/DL (8.5-10.1); CHLORIDE 104 MMOL/L (99-107); CREATININE 0.87 MG/DL (0.60-1.10); GLUCOSE 94 MG/DL (70-104); SODIUM 142 MMOL/L (135-145); TOTAL CARBON DIOXIDE 28.4 MMOL/L (24-32); TOTAL PROTEIN 6.5 G/DL (6.4-8.2); eGFR > 90 ML/MIN
[2023-04-08] MEDS: heparin, porcine 5000 units/ml vial SQ SCH ×2 (07:54→19:02)
[2023-04-08] MEDS: linezolid 600mg tablet PO SCH ×2 (07:54→19:02)
[2023-04-08] MEDS: pantoprazole 40mg Tablet.DR PO SCH (07:54)
[2023-04-08 10:00] VITALS: BP 163/87; PULSE 52; RESP 16; TEMP 96.9; O2SAT 98
[2023-04-08] MEDS: HYDROcodone/acetaminophen 5mg/325mg tablet PO PRN (11:07)
[2023-04-08 18:00] VITALS: BP 131/74; PULSE 56; RESP 15; TEMP 98.3; O2SAT 99
[2023-04-08 22:00] VITALS: BP 126/76; PULSE 53; RESP 16; TEMP 98.6; O2SAT 96
[2023-04-08] MEDS: temazepam 15mg capsule PO PRN (22:29)
--- NOTE | 2023-04-09 03:52 | NUR ---
AGREE WITH BALWINDER HERNANDEZ'S ASSMT ON THIS PATIENT. NO NOTED CHANGES OR DIFFERENCES
[2023-04-09 06:00] VITALS: BP 140/74; PULSE 54; RESP 16; TEMP 97.6; O2SAT 100
[2023-04-09 06:13] LABS: BASOPHILS # (AUTO) 0.1 X10'3 (0-0.2); EOSINOPHILS # (AUTO) 0.3 X10'3 (0-0.9); EOSINOPHILS % (AUTO) 3.2 % (0-6); HEMATOCRIT 39.8 % (42.0-52.0); HEMOGLOBIN 13.5 g/dl (14.0-17.9); LYMPHOCYTES % (AUTO) 22.8 % (21-51); MEAN CORPUSCULAR HEMOGLOBIN 30.4 PG (27.0-31.0); MEAN CORPUSCULAR HGB CONC 33.9 g/dL (33.0-36.5); MEAN CORPUSCULAR VOLUME 89.7 FL (78-98); MEAN PLATELET VOLUME 7.6 FL (7.4-10.4); MONOCYTES # (AUTO) 0.5 X10'3 (0-0.9); MONOCYTES % (AUTO) 5.6 % (2-12); NEUTROPHILS # (AUTO) 6.1 X10'3 (1.8-7.7); NEUTROPHILS % (AUTO) 67.4 % (42-75); PLATELET COUNT 497 X10'3 (140-440); RED BLOOD COUNT 4.43 X10'6 (4.70-6.10); RED CELL DISTRIBUTION WIDTH 14.3 % (11.5-14.5)
[2023-04-09 06:19] LABS: ALANINE AMINOTRANSFERASE 53 U/L (12-78); ALBUMIN 2.5 G/DL (3.4-5.0); ALBUMIN/GLOBULIN RATIO 0.7 (1.1-1.5); ALKALINE PHOSPHATASE 93 IU/L (46-116); ANION GAP 12 (8-16); ASPARTATE AMINO TRANSFERASE 41 U/L (10-37); BILIRUBIN,TOTAL 0.2 MG/DL (0.1-1.0); BLOOD UREA NITROGEN 14 MG/DL (7-18); BUN/CREATININE RATIO 15.6 (10.0-20.0); CALCIUM 8.8 MG/DL (8.5-10.1); CHLORIDE 104 MMOL/L (99-107); GLUCOSE 123 MG/DL (70-104); POTASSIUM 3.5 MMOL/L (3.5-5.1); SODIUM 141 MMOL/L (135-145); TOTAL CARBON DIOXIDE 25.5 MMOL/L (24-32); TOTAL PROTEIN 6.2 G/DL (6.4-8.2); eGFR 87 ML/MIN
--- NOTE | 2023-04-09 06:21 | NUR ---
Problems reprioritized. Patient report given, questions answered & plan of care reviewed with Dallas HERNANDEZ.
--- NOTE | 2023-04-09 06:34 | NUR ---
Patient in room [facility] 4007. I have received report from MARY Gilliam and had the opportunity to ask questions and assume patient care.
[2023-04-09] MEDS: ceFAZolin/D5W- 1GM premix 50 ML IV SCH (06:45)
[2023-04-09] MEDS: pantoprazole 40mg Tablet.DR PO SCH (07:21)
[2023-04-09] MEDS: linezolid 600mg tablet PO SCH (07:21)
[2023-04-09] MEDS: heparin, porcine 5000 units/ml vial SQ SCH (07:22)
[2023-04-09 08:00] VITALS: RESP 16; O2SAT 100
[2023-04-09 10:00] VITALS: BP 133/85; PULSE 64; RESP 16; TEMP 98.3; O2SAT 100
--- NOTE | 2023-04-09 11:18 | NUR ---
Initial: Pt admit DX L leg ulcerated wound, GERD, and positive for meth/fentanyl per EMR. Anterior LLE traumatic injury per WOC noted. Pt PO mostly 100% regular diet meeting estimated needs. LBM 04/08 per EMR. No nutrition interventions at this time. Will continue to follow. Rec: 1. continue regular diet 2. bowel care per rx 3. scaled wt this admit; subsequent weekly wt Addendum: 04/09/23 at [address] Amended: Links added.
[2023-04-09] MEDS: normal saline 1000ml 1,000 ML IV SCH (11:39)
[2023-04-09] MEDS ORDERED: LINE600T14 PO (12:06)
[2023-04-09] MEDS ORDERED: HYDR-3964 PO (12:06)
--- NOTE | 2023-04-09 14:00 | NUR ---
I have reviewed and agree with interventions, assessments, and documentation by Dallas Sherwood LVN.
--- NOTE | 2023-04-09 16:34 | NUR ---
Pt stable for discharge. IV discontinued prior to discharge. Wound pictures taken before discharge. Patient has followup appointment in the wound care clinic for 04/11. Patient was given appointment information to take to appointment. Patient left with all belongings. Signed all discharge paperwork. Patient was assisted out of facility in a wheelchair with the assistance of one staff member and then left in his own personal vehicle to go home.
== END 2023-04-09 15:00 | disposition home or self-care (01) | DRG 383 ==
LOC: ER 09:12 → ED HOLD 11:37 → EDBEDREQ 15:32 → ORTHO 4S 16:26
PROVIDERS: ADMIT Internal Medicine; ATTEND Internal Medicine
DX: L03.116 Cellulitis of left lower limb (principal); F12.90 Cannabis use, unspecified, uncomplicated; K21.9 Gastro-esophageal reflux disease without esophagitis; Z60.2 Problems related to living alone; F15.90 Other stimulant use, unspecified, uncomplicated; Z56.0 Unemployment, unspecified; Z79.899 Other long term (current) drug therapy
CPT/HCPCS: 36415; 71045; 80053; 80305; 81001; 83605; 83735; 84145; 85025; 87040; 87081; 87088; 93005; 97116; 97161; 97530; 99285; A6196; A6223; A6250; A6253; A6258; A6446; A6449; G0378; J0690; J1644; J2270; J2543; J3490; J7030

== ENCOUNTER 2023-04-13 20:46 | Inpatient (IN) | payer MEDICAID ==
[~2023-04-13] VITALS: Ht 177.8 cm; Wt 66.4 kg
[~2023-04-13 20:46] MED LIST changes: -AMLO5TAB16 PO; +HYDR-3964 PO; -LACT1CAP26 PO; +LINE600T14 PO; -OMEP20TA43 PO; +OMEP40CA21 PO
[2023-04-14] MEDS ORDERED: vancomycin/NS 1 GM ADD-VANTAGE 250 ML IV ONE (02:30)
[2023-04-14] MEDS ORDERED: normal saline 1000ML IV soln IVB ONE (02:30)
[2023-04-14] MEDS ORDERED: acetaminophen 325mg tablet PO ONE (02:30)
[2023-04-14] MEDS ORDERED: ondansetron/PF 4mg/2ml inj IV ONE (02:30)
[2023-04-14] MEDS ORDERED: linezolid 600mg tablet PO ONE (02:35)
[2023-04-14] MEDS ORDERED: diphenhydrAMINE 50 mg/ml inj IV PRN (03:55)
[2023-04-14] MEDS ORDERED: bisacodyl 10mg suppository rectal RC PRN (03:55)
[2023-04-14] MEDS ORDERED: ondansetron/PF 4mg/2ml inj IV PRN (03:55)
[2023-04-14] MEDS ORDERED: diphenhydrAMINE 25mg capsule PO PRN (03:55)
[2023-04-14] MEDS ORDERED: acetaminophen 650mg rectal suppository RC PRN (03:55)
[2023-04-14] MEDS ORDERED: magnesium hydroxide 30ml (MOM) UD suspension PO PRN (03:55)
[2023-04-14] MEDS ORDERED: mag hydrox/Alum hydrox/simeth 30ml oral suspension PO PRN (03:55)
[2023-04-14] MEDS ORDERED: dextrose 5%-1/2 normal saline 1,000 ML IV SCH (03:55)
[2023-04-14] MEDS ORDERED: HYDROcodone/acetaminophen 10/325mg tab PO PRN (03:55)
[2023-04-14] MEDS ORDERED: metoclopramide 5 mg/ml inj IV PRN (03:55)
[2023-04-14] MEDS ORDERED: HYDROcodone/acetaminophen 5mg/325mg tablet PO PRN (03:55)
[2023-04-14] MEDS ORDERED: ondansetron 4mg rapidly disintigrating tab PO PRN (03:55)
[2023-04-14] MEDS ORDERED: morphine 2 MG/ML inj. syringe IV PRN ×2 (03:55)
[2023-04-14] MEDS ORDERED: acetaminophen 325mg tablet PO PRN ×2 (03:55)
[2023-04-14 03:57] LABS: BASOPHILS # (AUTO) 0.1 X10'3 (0-0.2); BASOPHILS % (AUTO) 0.8 % (0-1); EOSINOPHILS # (AUTO) 0.1 X10'3 (0-0.9); EOSINOPHILS % (AUTO) 0.7 % (0-6); HEMATOCRIT 41.2 % (42.0-52.0); HEMOGLOBIN 13.9 g/dl (14.0-17.9); LYMPHOCYTES # (AUTO) 1.6 X10'3 (1.1-4.8); LYMPHOCYTES % (AUTO) 17.4 % (21-51); MEAN CORPUSCULAR HEMOGLOBIN 30.7 PG (27.0-31.0); MEAN CORPUSCULAR HGB CONC 33.8 g/dL (33.0-36.5); MEAN CORPUSCULAR VOLUME 90.9 FL (78-98); MEAN PLATELET VOLUME 7.5 FL (7.4-10.4); MONOCYTES # (AUTO) 0.5 X10'3 (0-0.9); MONOCYTES % (AUTO) 5.2 % (2-12); NEUTROPHILS # (AUTO) 6.8 X10'3 (1.8-7.7); NEUTROPHILS % (AUTO) 75.9 % (42-75); PLATELET COUNT 507 X10'3 (140-440); RED BLOOD COUNT 4.54 X10'6 (4.70-6.10); RED CELL DISTRIBUTION WIDTH 14.7 % (11.5-14.5); WHITE BLOOD COUNT 8.9 X10'3 (4.5-11.0)
--- NOTE | 2023-04-14 03:57 | NUR ---
increased JORDAN level 4 to level 3 due to increase of tests needed and status change.
[2023-04-14 05:02] LABS: APTT 30 SECONDS (22-32)
[2023-04-14 06:49] LABS: ALANINE AMINOTRANSFERASE 60 U/L (12-78); ALBUMIN 3.4 G/DL (3.4-5.0); ALBUMIN/GLOBULIN RATIO 0.9 (1.1-1.5); ALKALINE PHOSPHATASE 94 IU/L (46-116); ANION GAP 13 (8-16); ASPARTATE AMINO TRANSFERASE 44 U/L (10-37); BILIRUBIN,TOTAL 0.8 MG/DL (0.1-1.0); BLOOD UREA NITROGEN 29 MG/DL (7-18); BUN/CREATININE RATIO 21.6 (10.0-20.0); CALCIUM 8.8 MG/DL (8.5-10.1); CHLORIDE 103 MMOL/L (99-107); CREATININE 1.34 MG/DL (0.60-1.10); GLUCOSE 85 MG/DL (70-104); SODIUM 140 MMOL/L (135-145); TOTAL CARBON DIOXIDE 24.3 MMOL/L (24-32); TOTAL PROTEIN 7.1 G/DL (6.4-8.2); eGFR 55 ML/MIN
[2023-04-14 06:56] LABS: C-REACTIVE PROTEIN 0.64 MG/DL (0.0-0.5); MAGNESIUM 2.6 MG/DL (1.5-2.4); PHOSPHORUS 3.8 MG/DL (2.3-4.5)
[2023-04-14 07:00] LABS: POTASSIUM 4.5 MMOL/L (3.5-5.1)
[2023-04-14] MEDS ORDERED: piperacillin/tazo 4.5gm/100ml 100 ML IV SCH (08:00)
[2023-04-14] MEDS ORDERED: docusate sod 100mg capsule PO SCH (08:00)
[2023-04-14] MEDS: heparin, porcine 5000 units/ml vial SQ SCH ×2 (09:11→20:02)
[2023-04-14] MEDS: normal saline 1000ml 1,000 ML IV SCH ×2 (09:12→23:37)
[2023-04-14] MEDS: vancomycin/NS 1 GM ADD-VANTAGE 250 ML IV SCH (14:30)
[2023-04-14 15:15] LABS: CLARITY,URINE CLEAR (Clear); COLOR,URINE YELLOW (Yellow); GLUCOSE, URINE NEGATIVE (Neg); KETONES,URINE NEGATIVE (Neg); LEUKOCYTE ESTERASE ,URINE NEGATIVE (Neg); NITRITES, URINE NEGATIVE (Neg); OCCULT BLOOD,URINE NEGATIVE (Neg); PH,URINE 5.5 (4.8-8.0); PROTEIN,URINE NEGATIVE (Neg); UROBILINOGEN,URINE 0.2 E.U/dL (0.2-1.0)
[2023-04-14 15:22] LABS: UA COLLECTION TYPE VOIDED
[2023-04-14 15:35] LABS: URINE AMPHETAMINE SCREEN POSITIVE (Neg); URINE BARBITUATE SCREEN NEGATIVE (Neg); URINE BENZODIAZEPINES SCREEN NEGATIVE (Neg); URINE CANNABINOID SCREEN POSITIVE (Neg); URINE COCAINE SCREEN NEGATIVE (Neg); URINE METHADONE SCREEN NEGATIVE (Neg); URINE OPIATE SCREEN NEGATIVE (Neg); URINE PHENCYCLIDINE SCREEN NEGATIVE (Neg)
--- NOTE | 2023-04-14 18:14 | NUR ---
ASSUMED CARE AND TAKEN REPORT FROM ZEUS HERNANDEZ.
--- NOTE | 2023-04-14 18:41 | NUR ---
PT IN ROOM EATING DINNER, PT HAS NO NEEDS AT THIS TIME. WILL CONTINUE WITH PLAN OF CARE.
[2023-04-14] MEDS ORDERED: linezolid 600mg/300ml PREMIX 300 ML IV SCH (20:00)
--- NOTE | 2023-04-14 20:50 | NUR ---
pt appears to be sleeping in room, respirations rate 16, even and unlabored.
[2023-04-14] MEDS ORDERED: temazepam 15mg capsule PO PRN (21:00)
[2023-04-15] MEDS: vancomycin/NS 1 GM ADD-VANTAGE 250 ML IV SCH ×2 (02:41→14:30)
--- NOTE | 2023-04-15 07:30 | NUR ---
Report received from TASHIA Garcia in ER.
--- NOTE | 2023-04-15 07:32 | NUR ---
RN CALLED REPORT TO MARLEEN [facility] AND TECH WILL TRANSPORT PT TO FLOOR ONCE SHE RETURNS FROM LAB.
[2023-04-15 07:50] VITALS: BP 134/87; PULSE 70; RESP 16; TEMP 98.1; O2SAT 99
[2023-04-15] MEDS ORDERED: pantoprazole 40mg Tablet.DR PO SCH (08:00)
[2023-04-15] MEDS: heparin, porcine 5000 units/ml vial SQ SCH (08:05)
[2023-04-15 08:14] VITALS: RESP 16
[2023-04-15 10:21] LABS: BASOPHILS # (AUTO) 0.1 X10'3 (0-0.2); BASOPHILS % (AUTO) 1.1 % (0-1); EOSINOPHILS # (AUTO) 0.2 X10'3 (0-0.9); EOSINOPHILS % (AUTO) 3.1 % (0-6); HEMATOCRIT 39.5 % (42.0-52.0); HEMOGLOBIN 12.9 g/dl (14.0-17.9); LYMPHOCYTES # (AUTO) 1.4 X10'3 (1.1-4.8); LYMPHOCYTES % (AUTO) 20.2 % (21-51); MEAN CORPUSCULAR HGB CONC 32.6 g/dL (33.0-36.5); MEAN CORPUSCULAR VOLUME 91.9 FL (78-98); MEAN PLATELET VOLUME 7.4 FL (7.4-10.4); MONOCYTES # (AUTO) 0.4 X10'3 (0-0.9); MONOCYTES % (AUTO) 6.1 % (2-12); NEUTROPHILS % (AUTO) 69.5 % (42-75); PLATELET COUNT 425 X10'3 (140-440); WHITE BLOOD COUNT 7.1 X10'3 (4.5-11.0)
[2023-04-15 10:30] LABS: ALANINE AMINOTRANSFERASE 42 U/L (12-78); ALBUMIN 2.8 G/DL (3.4-5.0); ALBUMIN/GLOBULIN RATIO 0.8 (1.1-1.5); ALKALINE PHOSPHATASE 79 IU/L (46-116); ANION GAP 8 (8-16); ASPARTATE AMINO TRANSFERASE 21 U/L (10-37); BILIRUBIN,TOTAL 0.2 MG/DL (0.1-1.0); BLOOD UREA NITROGEN 25 MG/DL (7-18); BUN/CREATININE RATIO 23.6 (10.0-20.0); CHLORIDE 107 MMOL/L (99-107); CREATININE 1.06 MG/DL (0.60-1.10); GLUCOSE 97 MG/DL (70-104); POTASSIUM 4.2 MMOL/L (3.5-5.1); SODIUM 140 MMOL/L (135-145); TOTAL CARBON DIOXIDE 24.8 MMOL/L (24-32); TOTAL PROTEIN 6.1 G/DL (6.4-8.2); eGFR 72 ML/MIN
[2023-04-15] MEDS ORDERED: VANCOMYCIN LEVEL IV ONE (14:00)
[2023-04-15] MEDS: normal saline 1000ml 1,000 ML IV SCH (14:16)
[2023-04-15] MEDS ORDERED: SULF1TAB49 PO (15:04)
[2023-04-15] MEDS ORDERED: ACET-1008 PO (15:04)
[2023-04-15] MEDS ORDERED: IBUP-1985 PO (15:04)
--- NOTE | 2023-04-15 16:53 | NUR ---
Pt stable for discharge. IV discontinued prior to d/c. Patient signed all discharge paperwork. Patient was also given community resource packet and offered water bottles at discharge. Patients mother was recently admitted to nearby SNF and patient stated he would walk to location. Patient was wheeled out of facility with the assistance of one staff member and left on his own. Patient was d/c at 1633 on 04/15/23
--- NOTE | 2023-04-15 18:41 | NUR ---
JOURNEYMAN PIPEFITTER documentation: I have reviewed and agree with assessments performed and documented by Dallas LAO.
== END 2023-04-15 16:33 | disposition home or self-care (01) | DRG 383 ==
LOC: ER 20:47 → ED HOLD 04-14 04:02 → ORTHO 4S 04-15 07:50
PROVIDERS: ADMIT Family Medicine; ATTEND Internal Medicine
DX: L03.116 Cellulitis of left lower limb (principal); E88.09 Other disorders of plasma-protein metabolism, not elsewhere classified; F15.90 Other stimulant use, unspecified, uncomplicated; F12.10 Cannabis abuse, uncomplicated; Z56.0 Unemployment, unspecified; Z79.899 Other long term (current) drug therapy
CPT/HCPCS: 36415; 73590; 80053; 80202; 80305; 81003; 83605; 83735; 83880; 84100; 84145; 85025; 85610; 85651; 85730; 86140; 87040; 93005; 99285; A4615; G0378; J1644; J2405; J3370; J7030

== ENCOUNTER 2023-08-28 12:43 | Emergency (ER) | payer MEDICAID ==
[~2023-08-28] VITALS: Ht 180.3 cm; Wt 75.5 kg
[~2023-08-28 12:43] MED LIST changes: -HYDR-3964 PO; +IBUP-1985 PO; -LINE600T14 PO
[2023-08-28 12:53] VITALS: BP 135/95; PULSE 79; RESP 16; TEMP 98.6; O2SAT 99
== END 2023-08-28 14:10 | disposition home or self-care (01) ==
LOC: ER 12:44
DX: H61.21 Impacted cerumen, right ear (principal); F12.10 Cannabis abuse, uncomplicated; F15.10 Other stimulant abuse, uncomplicated; Z79.899 Other long term (current) drug therapy
CPT/HCPCS: 69209; 99282

== ENCOUNTER 2023-09-18 14:39 | Emergency (ER) | payer MEDICAID ==
[~2023-09-18] VITALS: Ht 180.3 cm; Wt 77.1 kg
[2023-09-18 14:42] VITALS: BP 151/100; PULSE 58; RESP 16; O2SAT 98
[2023-09-18] MEDS ORDERED: CEFD300C3 PO (14:49)
[2023-09-18 15:04] VITALS: TEMP 97.9
== END 2023-09-18 15:07 | disposition home or self-care (01) ==
LOC: ER 14:40
DX: H66.91 Otitis media, unspecified, right ear (principal); F12.10 Cannabis abuse, uncomplicated; F15.10 Other stimulant abuse, uncomplicated; Z79.899 Other long term (current) drug therapy
CPT/HCPCS: 99283